=== PATIENT | male | born 1980 ===

== ENCOUNTER 2023-09-07 15:57 | Outpatient (REF) | payer BC, SELFPAY ==
[2023-09-07 16:48] LABS: Abs Immature Grans 0.06 10^3/uL (0.0-0.06); Absolute Basophil Count 0.07 10^3/uL (0.0-0.2); Absolute Eosinophil Count 0.09 10^3/uL (0.0-0.7); Absolute Lymphocyte Count 2.56 10^3/uL (1.2-3.4); Absolute Monocyte Count 0.68 10^3/uL (0.1-0.8); Absolute Neutrophil Count 6.23 10^3/uL (1.2-6.7); Basophils % 0.7; Eosinophils % 0.9; HGB 15.7 g/dL (13.5-17.5); Immature Grans % 0.6; Lymphocytes % 26.4; MCH 31.5 pg (27.0-33.0); MCHC 34.9 % (32.0-36.0); MCV 90 fL (80-95); MPV 10.7 fL (8.0-11.0); Neutrophils % 64.4; Platelet Count 311 10^3/uL (130-400); RBC 4.99 10^6/uL (4.36-5.78); RDW 12.8 % (11.8-14.1); RDW-SD 42.2 fL; WBC 9.69 10^3/uL (4.4-10.8)
[2023-09-08 22:08] LABS: IgE 18 IU/mL (<158)
== END 2023-09-07 15:58 | disposition home or self-care (01) ==
LOC: NCHCN 15:57
PROVIDERS: PCP Registered Nurse; Visit Provider Physician Assistant Surgical
DX: J45.909 Unspecified asthma, uncomplicated (principal)
CPT/HCPCS: 82785; 85025

== ENCOUNTER 2023-09-21 04:16 | Outpatient (CLI) | payer BC, SELFPAY ==
[2023-09-21] MEDS: Levalbuterol HFA 15 GM INH 4 PUFF IH (16:38)
[2023-09-21] MEDS: Inhaler, Assist Device 1 EACH MC (16:38)
--- NOTE | 2023-09-24 11:17 | W.PFT ---
Date of service: 09/21/23 Time of Service: 14:58 Pulmonary Function Test Result Indications: Asthma Interpretation Spirometry: There is no airflow limitation. Significant bronchodilator response. Lung Volumes: Normal lung volumes Diffusion Capacity: Normal diffusion Airway Pressure: Normal airways resistance Impression Normal pulmonary function, but with a significant bronchodilator response. Clinical Correlation therefore is recommended.
== END 2023-09-21 04:17 | disposition home or self-care (01) ==
LOC: RT 04:16
PROVIDERS: PCP Registered Nurse; Visit Provider Physician Assistant Surgical
DX: J45.909 Unspecified asthma, uncomplicated (principal)
CPT/HCPCS: 94060; 94726; 94729